=== PATIENT | female | born 1985 | race Two or more races ===

== ENCOUNTER 2016-07-12 15:46 | Emergency (ER) | payer OTHER ==
[~2016-07-12] VITALS: Ht 160 cm; Wt 90.7 kg
--- NOTE | 2016-07-12 16:25 | Emergency Room Report ---
History of Present Illness General Chief Complaint: Lower Back Pain or Injury Source: Patient Present Illness HPI 31-year-old female presents to emergency Department complaining of right-sided low back pain that radiates down into the posterior right thigh times one day. Pt reports pain to be 9/10 in severity. Patient states she has had symptoms similar to this in the past which usually were resolved after a day or 2. Patient denies trauma or fall. Patient denies nausea, vomiting, fevers, chills recent spinal procedure history of neoplastic disease. She states pain is exacerbated upon certain movements, bending forward or lying flat. Denies numbness tingling or loss of sensation or gross motor movements of the extremities, incontinence of bowel or bladder. Denies CP, Palpitations, LOC, AMS , dizziness, Changes in Vision, Sensation, paresthesias, or a sudden severe headache. Allergies: Coded Allergies: No Known Allergies (Unverified , 03/21/15) Patient History Past Medical History: see triage record Past Surgical History: none Pertinent Family History: none Last Menstrual Period: 07/12/16 Now: No Immunizations: UTD Reviewed Nursing Documentation: PMH: Agreed, PSxH: Agreed Nursing Documentation-PMH Past Medical History: No Stated History Review of Systems All Other Systems: negative except mentioned in HPI Physical Exam Vital Signs Date Time Temp Pulse Resp B/P Pulse Ox O2 Delivery O2 Flow Rate FiO2 07/12/16 15:56 98.4 84 19 113/62 99 Room Air Sp02 EP Interpretation: reviewed, normal General Appearance: no apparent distress, alert, GCS 15, non-toxic Head: normocephalic, atraumatic Eyes: bilateral eye PERRL, bilateral eye normal inspection ENT: hearing grossly normal, normal pharynx, no angioedema, normal voice Neck: full range of motion, supple/symm/no masses Respiratory: chest non-tender, lungs clear, normal breath sounds, speaking full sentences Cardiovascular #1: regular rate, rhythm, no edema Gastrointestinal: non tender, non-distended, no guarding Rectal: deferred Genitourinary: normal inspection, no CVA tenderness Musculoskeletal: back normal, gait/station normal, normal range of motion, no calf tenderness, tender - right sided lumbar paraspinal and upper gluteal TTP, no midline spinous TTP , no obvious deformity, pt. is NVI to lower extremities, no evidence of infeciton or incontinence. Neurologic: alert, oriented x3, responsive, motor strength/tone normal, sensory intact, speech normal Psychiatric: judgement/insight normal, memory normal, mood/affect normal, no suicidal/homicidal ideation Skin: normal color, no rash, warm/dry, well hydrated Lymphatic: no adenopathy Medical Decision Making PA Attestation Dr. Barnes is my supervising Physician whom patient management has been discussed with. Diagnostic Impression: Primary Impression: Acute low back pain with sciatica Qualified Codes: M54.41 - Lumbago with sciatica, right side ER Course Pt. presents to the ED c/o Right -sided low back pain that shoots down the leg x 1 day(s) PT states pain is worse with certain positions, walking, and bending forward, denies injury, denies incontinence, fevers, or hx of neoplastic disease. Ddx considered but are not limited to Fracture, dislocation, contusion, epidural abscess, Sprain/Strain/Spasm Vital signs: are WNL, pt. is afebrile H&PE are most consistent with right sided back pain and sciatica, no evidence of infection or saddle anesthesia Pt. unable to tolerate straight leg raise of the right leg. ORDERS: X-ray not required at this time, no spinous process tenderness ED INTERVENTIONS: -IM Toradol 40mg. -350mg Soma PO DISCHARGE: At this time pt. is stable for d/c to home. Will provide printed patient care instructions, and any necessary prescriptions. Care plan and follow up instructions have been discussed with the patient prior to discharge. Last Vital Signs Date Time Temp Pulse Resp B/P Pulse Ox O2 Delivery O2 Flow Rate FiO2 07/12/16 15:56 98.4 84 19 113/62 99 Room Air Disposition: HOME, SELF-CARE Condition: Stable Scripts Ibuprofen* (MOTRIN*) 600 Mg Tablet 600 MG ORAL THREE TIMES A DAY, #30 TAB 0 Refills Prov: Hannah Mancera P.A. 07/12/16 Cyclobenzaprine Hcl* (FLEXERIL*) 10 Mg Tablet 10 MG ORAL THREE TIMES A DAY, #20 TAB Prov: Hannah Mancera P.A. 07/12/16 Departure Forms: Return to Work Return to Work Date: Jul 14, 2016 Work Restrictions: No Heavy Lifting, No Prolonged Standing Return to Full Activity: Jul 19, 2016 Patient Instructions: Sciatica, [id number] Additional Instructions: Take medications as directed. Follow up with PCP in 3-5 days Return sooner to ED if new symptoms occur, or current symptoms become worse. Do not drink alcohol, drive, or operate heavy machinery while taking muscle relaxer as this may cause drowsiness. Hannah Mancera Jul 12, 2016 16:25
[2016-07-12] MEDS ORDERED: Ketorolac 60mg Inj IM ONE (16:45)
[2016-07-12] MEDS ORDERED: CYCLOBENZAPRINE10 MG ORAL (16:59)
[2016-07-12] MEDS ORDERED: IBUPROFEN600 MG ORAL (16:59)
[2016-07-12 17:21] VITALS: BP 113/62
== END 2016-07-12 17:21 | disposition home or self-care (01) ==
LOC: EMR 16:40
DX: M54.41 Lumbago with sciatica, right side (principal)
CPT/HCPCS: 96372; 99283